=== PATIENT | female | born 1995 | race Caucasian/White ===

== ENCOUNTER 2016-05-27 11:31 | Emergency (ER) | payer BC, MEDICAID ==
[2016-05-27 13:05] VITALS: BP 121/54
--- NOTE | 2016-05-27 14:51 | UC ---
Throat Pain/Nasal Kirby HPI - HPI Summary HPI Summary: pt with 1 week h/o sore throat. able to drink adaquate amounts of fluid but has lost appetite for solid food. no f/c/cough/n/vd. - History of Current Complaint Chief Complaint: UCGeneralIllness Stated Complaint: SORE THROAT Time Seen by Provider: 05/27/16 14:35 Hx Obtained From: Patient Hx Last Menstrual Period: 05/13/16 ?: No Onset/Duration: Sudden Onset, Lasting Weeks - 1, Still Present Severity: Moderate Pain Intensity: 5 Cough: None Associated Signs & Symptoms: Positive: Dysphagia - pain. Negative: FB Sensation , Drooling, Wheezing, Hoarseness, Sinus Discomfort, Nasal Discharge, Fever, Vomiting, Rash - Allergies/Home Medications Allergies/Adverse Reactions: Allergies Allergy/AdvReac Type Severity Reaction Status Date / Time No Known Allergies Allergy Verified 05/27/16 13:05 Home Medications: Home Medications Acetaminophen TAB* [Tylenol TAB*] 500 mg PO Q4H PRN 05/27/16 [History Confirmed 05/27/16] PMH/Surg Hx/FS Hx/Imm Hx Previously Healthy: Yes - Surgical History Surgical History: None - Family History Known Family History: Positive: Unknown - pt is young. she is unaware of family hx - Social History Occupation: Employed Full-time Lives: With Family Alcohol Use: None Substance Use Type: None Smoking Status (MU): Never Smoked Tobacco Review of Systems Constitutional: Negative Skin: Negative Eyes: Negative ENT: Sore Throat Respiratory: Negative Cardiovascular: Negative Gastrointestinal: Negative Genitourinary: Negative Motor: Negative Neurovascular: Negative Musculoskeletal: Negative Neurological: Negative Psychological: Negative All Other Systems Reviewed And Are Negative: Yes Physical Exam Triage Information Reviewed: Yes Appearance: Well-Appearing, No Pain Distress, Well-Nourished Vital Signs: Initial Vital Signs Temp 98.8 F 05/27/16 13:00 Pulse 107 05/27/16 13:00 Resp 18 05/27/16 13:00 BP 121/54 05/27/16 13:00 Pulse Ox 100 05/27/16 13:00 Vital Signs Reviewed: Yes Eyes: Positive: Conjunctiva Clear, Discharge ENT: Positive: Hearing grossly normal, Pharyngeal erythema, TMs normal, Tonsillar swelling, Tonsillar exudate. Negative: Nasal congestion, Nasal drainage, Trismus, Muffled/hoarse voice Dental Exam: Normal Neck: Positive: Supple, Tenderness @, Enlarged Nodes @ - tonsilar Respiratory: Positive: Lungs clear, Normal breath sounds, No respiratory distress, No accessory muscle use Cardiovascular: Positive: RRR, No Murmur Musculoskeletal Exam: Normal Neurological: Positive: Alert, Muscle Tone Normal Psychological: Positive: Age Appropriate Behavior Skin Exam: Normal Throat Pain/Nasal Course/Dx - Differential Dx/Diagnosis Differential Diagnosis/HQI/PQRI: Pharyngitis, Sinusitis, Tonsillitis, URI Provider Diagnoses: tonsilitis Discharge - Discharge Plan Condition: Stable Disposition: SWING BED - OTHER FACILITY Prescriptions: Amoxicillin CAP* 500 mg PO Q12H #20 cap Patient Education Materials: Tonsillitis (ED), Amoxicillin (By mouth) Referrals: Non Staff,Doctor [Primary Care Provider] - (follow up in 3-5 days if not improving) Additional Instructions: ANYTIME YOU TAKE AN ANTIBIOTIC IT IS VERY IMPORTANT TO REPLENISH YOUR BODY'S SUPPLY OF "GOOD" BACTERIA. YOU CAN DO THIS BY EATING HIGH QUALITY CULTURED FOODS SUCH LOCAL YOGURT, SOUR KRAUT AND AMPARO [place]. YOU CAN ALSO TAKE A PROBIOTIC SUPPLEMENT.
== END 2016-05-27 15:30 | disposition swing bed (61) ==
LOC: UCCORT 11:31
DX: J03.90 Acute tonsillitis, unspecified (principal)
CPT/HCPCS: 87651; 99202; G0463